=== PATIENT | male | born 1995 | race Caucasian/White ===

== ENCOUNTER 2016-12-16 15:28 | Emergency (ER) | payer BC ==
[~2016-12-16] VITALS: Ht 182.9 cm; Wt 81.4 kg
[2016-12-16 15:43] VITALS: TEMP 36.5; Ht 182.9 cm; Wt 81.4 kg
[2016-12-16] MEDS ORDERED: METHYLPREDNISOLONE 125 MG VIAL IV STA (15:52)
[2016-12-16] MEDS ORDERED: DiphenhydrAMINE HCL 50 MG/ML VIAL IV STA (15:52)
[2016-12-16] MEDS ORDERED: SODIUM CHLORIDE 0.9% 500ML 500 ML IV STA (15:52)
[2016-12-16] MEDS ORDERED: FAMOTIDINE IV INJ 20 MG in DEXTROSE 5% 100ML 100 ML IV STA (15:52)
[2016-12-16 15:56] VITALS: O2SAT 94
[2016-12-16 16:20] LABS: BASO % 0.1 %; BASO ABS # 0.01 K/uL (0-0.2); COMPLETE YES; EOS % 0.4 %; HEMATOCRIT 47.7 % (42-52); IG% 0.1 %; LYMPH % 23.1 %; LYMPH ABS # 1.81 K/uL (1.2-3.4); MEAN CELL VOLUME 82.8 fL (80-100); MEAN CORPUSCULAR HEMOGLOBIN 29.9 pg (25-34); MEAN CORPUSCULAR HGB CONC 36.1 g/dl (32-36); MEAN PLATELET VOLUME 10.5 fL (7.4-10.4); MONO % 7.4 %; NEUT % 68.9 %; PLATELET COUNT 199 K/uL (130-400); RED BLOOD COUNT 5.76 M/uL (4.7-6.1); WHITE BLOOD COUNT 7.85 K/uL (4.8-10.8)
[2016-12-16 16:36] LABS: BUN/CREATININE RATIO 12.7 (10-20); CALCIUM 8.7 mg/dl (8.5-10.1); POTASSIUM 3.5 mmol/L (3.5-5.1)
--- NOTE | 2016-12-16 16:46 | DIAGNOSTIC IMAGING REPORT ---
CHEST ONE VIEW PORTABLE CLINICAL HISTORY: ALLERGIC REACTION COMPARISON STUDY: No previous studies for comparison. FINDINGS: The cardiac and mediastinal contours are normal. There is no evidence of focal pulmonary consolidation. There is no evidence of failure. No pleural effusions are visualized.[ IMPRESSION: No active disease in the chest. Electronically signed by: Sonido Guevara M.D. 12/16/2016 4:44 PM Dictated Date/Time: 12/16/2016 4:44 PM
[2016-12-16] MEDS ORDERED: DIPH50TA10 PO (16:50)
[2016-12-16] MEDS ORDERED: EPINEPHRINE ADULT AUTO-INJECT 0.3 MG SYR IM STA (19:30)
[2016-12-16] MEDS ORDERED: METH4PAK PO (19:36)
[2016-12-16 20:07] VITALS: BP 111/61; PULSE 66; O2SAT 98
--- NOTE | 2016-12-16 20:10 | EMERGENCY ROOM VISIT NOTE ---
History First contact with patient: 15:47 Chief Complaint: ALLERGIC REACTION Stated Complaint: ALLERGIC REACTION, ANAPHALCTIC SHOCK Nursing Triage Summary: Pt states having a rxn to seasame. Took 50mg Benadryl at 1430, used epipen at 1500. Hives all over body. Denies sob or difficulty swallowing. History of Present Illness The patient is a 21 year old male who presents to the Emergency Room with complaints of an allergic reaction to sesame paste. The patient reports that he ate food before he realized that there was sesame product in the food. The patient ate food around 12:30, and started to develop a reaction approximately 30 minutes afterwards. The patient Benadryl 50 mg at 2:30 PM. When he started to develop some throat tightness, he then administered an EpiPen. He reports that symptoms significantly improved, then broke out in hives approximately 30 minutes prior to arrival. At the current time, the patient denies any palpitations, chest tightness, wheezing, shortness of breath or sensation of lip /tongue/throat swelling. The patient has been hospitalized in the past, approximately 7-8 years ago, after eating sesame paste. Review of Systems HEENT: Denies dizziness, visual problems, hearing loss, tinnitus. Denies difficulty swallowing or oral lesions, but does report swelling as indicated in history of present illness. PULMONARY: Denies cough, shortness of breath, sputum production or hemoptysis. CARDIOVASCULAR: Denies chest pain, palpitations, dyspnea on exertion, orthopnea or peripheral edema. GASTROINTESTINAL: Denies diarrhea, constipation, nausea, vomiting, or abdominal pain. GENITOURINARY: Denies dysuria, frequency, urgency or nocturia. NEUROLOGIC: Denies history of epilepsy, CVA, TIA or chronic headaches. MUSCULOSKELETAL: Denies history of joint tenderness/swelling. SKIN: Denies rashes or lesions. PSYCHIATRIC: Denies history of depression or mental illness. ENDOCRINE: Denies history of diabetes or thyroid disorders. Past Medical/Surgical History Medical Problems: (1) No significant past medical history Surgical Problems: (1) No history of previous surgery Family History Unremarkable Social History Smoking Status: Never Smoker Alcohol Use: none Marital Status: single Occupation Status: [employer] student Current/Historical Medications Scheduled Methylprednisolone (Medrol Dosepak), 0 PO DAILY Scheduled PRN Diphenhydramine Hcl (Sleep) (Diphenhydramine Hcl), 1 TAB PO BID PRN for ALLERGIC REACTION Allergies Coded Allergies: Nut Tree (Verified Allergy, Severe, "ABDOMINAL PAIN TO TREE NUTS", 12/16/16) Peanut (Verified Allergy, Severe, ANAPHYLAXIS, 12/16/16) Sesame Seed (Verified Allergy, Severe, ANAPHYLAXIS, 12/16/16) Acetaminophen (Verified Allergy, Intermediate, HIVES, 12/16/16) Physical Exam Vital Signs Date Time Temp Pulse Resp B/P Pulse Ox O2 Delivery O2 Flow Rate FiO2 12/16/16 18:41 73 18 111/60 98 Room Air 12/16/16 17:22 66 20 128/86 97 Room Air 12/16/16 16:20 56 12/16/16 15:56 94 Room Air 12/16/16 15:43 36.5 66 18 122/77 96 Room Air Physical Exam CONSTITUTIONAL: Healthy and well nourished. Alert and oriented X 3 with positive affect. The patient appears in moderate discomfort from pruritus, scratching his arms and chest. HEENT: Normocephalic, atraumatic. Pupils equal, round and reactive. No obvious facial edema. Ears and nares are clear. OROPHARYNX: No evidence for angioedema at this time. NECK: Full active range of motion without discomfort. No JVD or carotid bruits. No nuchal rigidity. RESPIRATORY: Clear to auscultation bilaterally with no wheezing, crackles, rhonchi or stridor. CARDIOVASCULAR: Regular rate and rhythm with no murmurs, rubs or gallops. GASTROINTESTINAL: Bowel sounds present in all quadrants. Soft and nontender to palpation. MUSCULOSKELETAL: Full range of motion of all joints without discomfort. INTEGUMENTARY: Patient has hives all over the body. No vesicles, pustules or desquamation. NEUROLOGIC: Cranial nerves II-XII grossly intact. No focal neurologic deficits noted. Medical Decision & Procedures ER Provider Diagnostic Interpretation: My interpretation of an ECG shows a sinus bradycardia of [address] elevation. Early repolarization is noted. No prior ECGs are available for comparison. My interpretation of a portable chest x-ray does not show any consolidations, pneumothorax or pleural effusions. Radiologist report is as follows: CHEST ONE VIEW PORTABLE CLINICAL HISTORY: ALLERGIC REACTION COMPARISON STUDY: No previous studies for comparison. FINDINGS: The cardiac and mediastinal contours are normal. There is no evidence of focal pulmonary consolidation. There is no evidence of failure. No pleural effusions are visualized.[ IMPRESSION: No active disease in the chest. Laboratory Results 12/16/16 16:04 Red Blood Count 5.76, Mean Corpuscular Volume 82.8, Mean Corpuscular Hemoglobin 29.9, Mean Corpuscular Hemoglobin Concent 36.1, Mean Platelet Volume 10.5, Neutrophils (%) (Auto) 68.9, Lymphocytes (%) (Auto) 23.1, Monocytes (%) (Auto) 7.4, Eosinophils (%) (Auto) 0.4, Basophils (%) (Auto) 0.1, Neutrophils # (Auto) 5.41, Lymphocytes # (Auto) 1.81, Monocytes # (Auto) 0.58, Eosinophils # (Auto) 0.03, Basophils # (Auto) 0.01 12/16/16 16:04 Test 12/16/16 16:04 White Blood Count 7.85 K/uL (4.8-10.8) Red Blood Count 5.76 M/uL (4.7-6.1) Hemoglobin 17.2 g/dL (14.0-18.0) Hematocrit 47.7 % (42-52) Mean Corpuscular Volume 82.8 fL (80-100) Mean Corpuscular Hemoglobin 29.9 pg (25-34) Mean Corpuscular Hemoglobin Concent 36.1 g/dl (32-36) Platelet Count 199 K/uL (130-400) Mean Platelet Volume 10.5 fL (7.4-10.4) Neutrophils (%) (Auto) 68.9 % Lymphocytes (%) (Auto) 23.1 % Monocytes (%) (Auto) 7.4 % Eosinophils (%) (Auto) 0.4 % Basophils (%) (Auto) 0.1 % Neutrophils # (Auto) 5.41 K/uL (1.4-6.5) Lymphocytes # (Auto) 1.81 K/uL (1.2-3.4) Monocytes # (Auto) 0.58 K/uL (0.11-0.59) Eosinophils # (Auto) 0.03 K/uL (0-0.5) Basophils # (Auto) 0.01 K/uL (0-0.2) RDW Standard Deviation 37.2 fL (36.4-46.3) RDW Coefficient of Variation 12.5 % (11.5-14.5) Immature Granulocyte % (Auto) 0.1 % Immature Granulocyte # (Auto) 0.01 K/uL (0.00-0.02) Erythrocyte Sedimentation Rate 2 mm/hr (0-14) Anion Gap 10.0 mmol/L (3-11) Est Creatinine Clear Calc Drug Dose 129.4 ml/min Estimated GFR () 125.0 Estimated GFR (Non- 107.9 BUN/Creatinine Ratio 12.7 (10-20) Calcium Level 8.7 mg/dl (8.5-10.1) The above labs were reviewed. Medications Administered Medications (Trade) Dose Ordered Sig/Blanca Route Start Time Stop Time Status Last Admin Dose Admin Sodium Chloride (Nss 500ml) 500 ml @ 999 mls/hr Q31M STAT IV 12/16/16 15:52 12/16/16 16:22 DC 12/16/16 16:14 999 MLS/HR Methylprednisolone Sodium Succinate (Solu-Medrol IV) 125 mg NOW STAT IV 12/16/16 15:52 12/16/16 15:56 DC 12/16/16 16:15 125 MG Diphenhydramine HCl 50 mg 50 mg NOW STAT IV 12/16/16 15:52 12/16/16 15:56 DC 12/16/16 16:18 50 MG Famotidine/ Dextrose (Pepcid IV Inj/ D5 100ml) 102 ml @ 200 mls/hr ONE STAT IV 12/16/16 15:52 12/16/16 16:22 DC 12/16/16 16:33 200 MLS/HR Procedure 1. IV hydration: The patient received a normal saline 500 mL bolus 2. IV medications: Benadryl 50 mg, Solu-Medrol 125 mg and Pepcid 20 mg IVP ED Course Patient history and physical exam were performed. Nurse's notes were reviewed. The patient does not appear in any acute distress. Vital signs were also reviewed and normal. The patient is normotensive and normal heart rate. O2 saturation was 98% on room air in examination room. IV access was established, and labs were drawn. ECG and portable chest x-ray were normal. Labs were also reviewed and were normal. The patient was observed for 3 hours and reported significant improvement of his symptoms. He denied any sensation of lip/tongue/ throat swelling. He had almost complete resolution of his hives. He requested discharge home. The case was further discussed with Dr. Smalls, ED attending physician, who agrees with outpatient management. The patient was dispensed an EpiPen from the emergency department as he will not likely be able to get his prescription filled tonight, and his other EpiPen's are at home in [place]. The patient was also provided a prescription for a Medrol Dosepak. He was encouraged to take Benadryl and Zantac for the next 2-3 days to help suppress this reaction. If the patient develops any further anaphylactic symptoms, he was instructed to administer his EpiPen and call 911 immediately. He was encouraged to remain cool and avoid strenuous activities for the next several days. The patient was happy with plan of care, and voiced understanding of all discharge instructions. Medical Decision Patient presents with an allergic reaction to sesame paste. The patient did have to self administer an EpiPen. The patient has remained hemodynamically stable in the emergency department. He was monitored without any adverse cardiac events, hypoxia or syncope. The patient reports symptomatic relief with his treatment. At this point, I do feel that the patient is safe for outpatient management, with specific instructions to return for any worsening symptoms. Impression Primary Impression: Anaphylaxis Departure Information Prescriptions Methylprednisolone (MEDROL DOSEPAK) 4 Mg Jose A 0 PO DAILY, #1 PKT Prov: Davy Kaye PA 12/16/16 Referrals No Doctor, Assigned (PCP) Patient Instructions My [facility] Problem Qualifiers Primary Impression: Anaphylaxis Encounter type: initial encounter Qualified Codes: T78.2XXA - Anaphylactic shock, unspecified, initial encounter
== END 2016-12-16 20:08 | disposition home or self-care (01) ==
LOC: C.EDB 15:31 → C.EDC 20:08
DX: T78.2XXA Anaphylactic shock, unspecified, initial encounter (principal); X58.XXXA Exposure to other specified factors, initial encounter; Z91.018 Allergy to other foods; Z91.010 Allergy to peanuts; Z88.6 Allergy status to analgesic agent